=== PATIENT | female | born 1950 | race Two or more races ===

== ENCOUNTER 2024-02-22 19:01 | Emergency (ER) | payer OTHER ==
[~2024-02-22] VITALS: Ht 152.4 cm; Wt 49.9 kg
[2024-02-22] MEDS ORDERED: SYNTHROID75 MCG (19:25)
[2024-02-22] MEDS ORDERED: ASPIRIN 325 MG TABLET.EC PO STA (19:29)
[2024-02-22] MEDS ORDERED: ASPIRIN 325 MG TABLET.EC PO ONE (19:41)
[2024-02-22 19:53] LABS: HEMATOCRIT 36.7 % (36.0-45.00); HEMOGLOBIN 13.1 g/dL (12.0-15.00); MEAN CELL VOLUME 86.1 fL (80.00-100.00); MEAN CORPUSCULAR HEMOGLOBIN 30.8 pg (27.00-32.0); MEAN CORPUSCULAR HGB CONC 35.7 g/dl (32.0-36.0); PLATELET COUNT 353 K/uL (150-450); RED BLOOD COUNT 4.26 M/uL (4.00-6.00); RED CELL DISTRIBUTION WIDTH 12.2 % (11.5-14.5)
[2024-02-22 20:30] LABS: CALCIUM 9.9 mg/dL (8.5-10.1); CREATININE SERUM 0.67 mg/dL (0.55-1.02); GFR 86.52; POTASSIUM 3.85 mEq/L (3.5-5.1)
[2024-02-22] MEDS ORDERED: CLONIDINE HCL 0.1 MG TABLET PO ONE ×2 (21:13→21:15)
== END 2024-02-22 22:15 | disposition home or self-care (01) ==
LOC: ER 19:03
PROVIDERS: Emergency Medicine
DX: R53.81 Other malaise (principal); I10 Essential (primary) hypertension; E03.8 Other specified hypothyroidism